=== PATIENT | female | born 1965 | race Caucasian/White ===

== ENCOUNTER 2019-11-07 13:47 | Emergency (ER) | payer BC, SELFPAY ==
[2019-11-07 14:13] VITALS: BP 104/50; PULSE 68; RESP 16; TEMP 36.8; O2SAT 99
--- NOTE | 2019-11-07 14:26 | ED.SKABFB ---
HPI - Skin/Abscess/Foreign Bdy General Chief complaint: Skin/Abscess/Foreign Body Stated complaint: . Time Seen by Provider: 11/07/19 14:26 Source: patient and RN notes reviewed History of Present Illness HPI narrative: Patient is a 54-year-old female that presents the urgent care with complaints of a wound to the left forearm. Patient states that she noticed it Thursday after digging in the mulch and it has became reddened and bruised around the area of injury. Patient denies of any known trauma. Denies any known insect that bit her. Denies of any fever, nausea, vomiting. Patient has been putting Neosporin on the area. No other acute complaints. No acute distress noted. Patient read the plan of care. Related Data Home Medications Medication Instructions Recorded Confirmed bupropion HCl 150 mg PO DAILY 11/07/19 11/07/19 Allergies Allergy/AdvReac Type Severity Reaction Status Date / Time No Known Allergies Allergy Mild Verified 11/07/19 14:12 Review of Systems Review of Systems: Narrative: CONSTITUTIONAL: Denies fever, chills, or sweats. EYES: Denies visual changes, redness, or discharge. ENT: Denies rhinorrhea, congestion, sore throat, or otalgia. CARDIOVASCULAR: Denies chest pain, palpitations, or edema. RESPIRATORY: Denies cough or dyspnea. GASTROINTESTINAL: Denies abdominal pain, nausea, vomiting, or diarrhea. GENITOURINARY: Denies dysuria or hematuria. SKIN: Reports of a possible insect bite to the left forearm MUSCULOSKELETAL: Denies back pain, joint pain, or myalgia. NEUROLOGIC: Denies headache, numbness, or weakness. All other systems reviewed are negative, except as documented in HPI. [facility] Social History Social History Gender identity (if verbalized by the patient): Female Comments At the time of my signature, I reviewed and agree with the nursing past medical, surgical, social, and family history. There is no relevant family history pertinent to the patient complaint. Exam Narrative: Exam Narrative: GENERAL: This is a well-nourished, well-developed patient, in no apparent distress. HEAD: normocephalic, atraumatic. EYES: PERRL. Sclera clear/white. Vision is grossly intact. EARS: External ears normal NOSE: External nose normal with no obvious nasal discharge THROAT: Mucous membranes moist NECK: Neck supple SKIN: 0.5 cm superficial healing scratch to the left forearm with approximately 4 cm surrounding ecchymotic area. No notable hematoma or signs of cellulitis NEURO: awake, alert, and oriented to person, place and time. There were no obvious focal neurologic abnormalities. EXTREMITIES: No clubbing, cyanosis, or edema. Course Vital Signs Vital signs: Vital Signs Temperature 98.2 F 11/07/19 14:13 Pulse Rate 68 11/07/19 14:13 Respiratory Rate 16 11/07/19 14:13 Blood Pressure 104/50 L 11/07/19 14:13 Pulse Oximetry 99 11/07/19 14:13 Temperature 98.2 F 11/07/19 14:13 Pulse Rate 68 11/07/19 14:13 Respiratory Rate 16 11/07/19 14:13 Blood Pressure 104/50 L 11/07/19 14:13 Pulse Oximetry 99 11/07/19 14:13 Reviewed MDM - Skin/Abscess/Foreign Bdy MDM Narrative Medical decision making narrative: Advised the patient to keep the area very clean and free of debris with plain Dial soap and water. If you are going to continue to be outside in that the area is at risk of being soiled?keep the area covered with long sleeves and a bandage. Otherwise, may keep it open to air. May continue to use Neosporin and ice as needed. Be aware of signs and symptoms of infection such as redness, swelling, discharge from the area. No antibiotics necessary at this time. Area should continue to heal well. Follow-up with your PCP within 2 to 5 days or for worsening symptoms or failure to improve. Differential Diagnosis Differential diagnosis: Likely abscess of skin or subcutaneous tissue, urticaria, cellulitis, insect bites and impetigo Critical Care Time Critical Care Time Critical Car
== END 2019-11-07 14:37 | disposition home or self-care (01) ==
PROVIDERS: Emergency Provider Nurse Practitioner Family
DX: S50.812A Abrasion of left forearm, initial encounter (principal); X58.XXXA Exposure to other specified factors, initial encounter
CPT/HCPCS: 99212; G0463

== ENCOUNTER 2020-07-11 20:15 | Emergency (ER) | payer BC, SELFPAY ==
[2020-07-11 20:19] VITALS: BP 117/88; PULSE 71; RESP 12; TEMP 36.6; O2SAT 97
--- NOTE | 2020-07-11 21:45 | ED.GENADULT ---
HPI - General Adult General Chief complaint: Weakness Stated complaint: COVID+ 1[facility] [facility] Time Seen by Provider: 07/11/20 21:05 History of Present Illness HPI narrative: Patient is a 55-year-old female who presents to the ER with complaints of weakness and epigastric pain. Patient recently diagnosed with COVID-19. Saw her PCP today for her symptoms and was prescribed a antibiotic for sinus congestion. Patient reports has been having tingling to her arms, intermittent cramps in her upper abdomen that is gut wrenching. No radiation. Cannot identify any aggravating or alleviating factors. Has persistent nausea but no vomiting. No modification with certain types of food. No constipation or diarrhea. Patient does report intermittent burning urination her last couple days. She is concerned she may be dehydrated. Patient also reports some tingling of her skin. Related Data Home Medications Medication Instructions Recorded Confirmed bupropion HCl 150 mg PO DAILY 11/07/19 11/07/19 Allergies Allergy/AdvReac Type Severity Reaction Status Date / Time No Known Allergies Allergy Mild Verified 07/11/20 20:24 Review of Systems Review of Systems: All systems reviewed & are unremarkable except as noted in HPI and below Constitutional: Constitutional: Denies chills, Denies fever(s) and Reports weakness ENT: Reports nasal congestion and Denies sore throat Cardiovascular: Cardiovascular: Denies chest pain and Denies radiating jaw, neck or arm pain Respiratory: Respiratory: Denies cough and Denies dyspnea Gastrointestinal: Gastrointestinal: Reports abdominal pain, Denies constipation, Denies diarrhea, Reports nausea and Denies vomiting Genitourinary: Genitourinary: Denies nocturia and Reports dysuria Musculoskeletal: Musculoskeletal: Denies back pain and Reports muscle cramps PMFSH Past Medical History Medical History (Updated 07/11/20 @ 22:50 by Ovidio Osorio MD) Healthy female adult Surgical History Surgical History (Updated 07/11/20 @ 22:19 by Ovidio Osorio MD) History of breast biopsy Social History Social History (Updated 07/11/20 @ 22:19 by Ovidio Osorio MD) Smoking status: Never smoker Gender identity (if verbalized by the patient): Female Exam Narrative: Exam Narrative: GENERAL: Well-appearing, well-nourished, and in no acute distress. HEAD: Normocephalic, atraumatic. EYES: PERRL and EOMI. CHEST: Clear to auscultation. No respiratory distress. HEART: Regular rate and rhythm. Normal peripheral pulses. ABDOMEN: Soft, mild epigastric tenderness without guarding, nondistended. EXTREMITIES: Normal range of motion. No edema. SKIN: Warm, dry, no rash. NEURO: Alert and oriented x3. PSYCH: Normal mood and affect. Course Course Emergency Course: Symptoms improved with morphine and Zofran. Patient hydrated. No tingling at this time. Discussed results. Recommend outpatient ultrasound of gallbladder and low-fat diet. Vital Signs Vital signs: Vital Signs Temperature 97.8 F 07/11/20 20:19 Pulse Rate 71 07/11/20 20:19 Respiratory Rate 12 07/11/20 20:19 Blood Pressure 117/88 07/11/20 20:19 Pulse Oximetry 97 07/11/20 20:19 Temperature 97.8 F 07/11/20 20:19 Pulse Rate 71 07/11/20 20:19 Respiratory Rate 12 07/11/20 20:19 Blood Pressure 117/88 07/11/20 20:19 Pulse Oximetry 97 07/11/20 20:19 Medical Decision Making Vital Signs Vital Signs: Vital Signs Temperature 97.8 F 07/11/20 20:19 Pulse Rate 71 07/11/20 20:19 Respiratory Rate 12 07/11/20 20:19 Blood Pressure 117/88 07/11/20 20:19 Pulse Oximetry 97 07/11/20 20:19 Temperature 97.8 F 07/11/20 20:19 Pulse Rate 71 07/11/20 20:19 Respiratory Rate 12 07/11/20 20:19 Blood Pressure 117/88 07/11/20 20:19 Pulse Oximetry 97 07/11/20 20:19 Lab Data Result diagrams: 07/11/20 21:40 07/11/20 21:40 Labs: Lab Results 01
[2020-07-11 21:48] LABS: Basophils Percent Auto 0.3 % (0.2-1.2); Eosinophils Percent Auto 1.1 % (0-4.4); Hematocrit 42.2 % (37.0-47.0); Hemoglobin 14.1 g/dL (12.0-15.0); Lymphocytes Absolute Auto 1.33 K/mm3 (0.9-3.2); Lymphocytes Percent Auto 36.5 % (18.3-44.2); Mean Corpuscular HGB Conc 33.4 g/dl (32-36); Mean Corpuscular Hemoglobin 29.6 pg (26-34); Mean Corpuscular Volume 88.5 fl (80-100); Mean Platelet Volume 10.3 fl (7.4-10.4); Monocytes Absolute Auto 0.4 K/mm3 (0.1-0.6); Monocytes Percent Auto 9.6 % (2.6-8.5); Neutrophils Absolute Auto 1.9 K/mm3 (1.3-6.7); Neutrophils Percent Auto 52.5 % (45.5-73.1); Platelet Count Result 242 k/mm3 (150-375); Red Blood Count 4.77 M/mm3 (4.2-5.4); Red Cell Distribution Width 12.2 % (11.5-14.5); White Blood Count 3.6 K/mm3 (4.5-10.0)
[2020-07-11 21:50] LABS: Add Urine Microscopic? NO; Appearance Urine Clear (Clear); Bilirubin Urine Negative (Negative); Blood Urine Negative (Negative); Color Urine Straw (Yellow); Glucose Urine UA Negative (Negative); Ketones Urine Negative (Negative); Leukocyte Esterase Ur Negative LEU/UL (Negative); Nitrate Urine Negative (Negative); Protein Urine Negative (Negative); Specific Grav Ur 1.012 (1.001-1.035); Urobilinogen Urine Negative mg/dL (<2.0)
[2020-07-11] MEDS: SODIUM CHLORIDE 0.9% IV 1,000 ML 999 ML IV CONT (21:54)
[2020-07-11] MEDS: MORPHINE SULFATE (*CRX) 4 MG/ML INJ IV PUSH (21:54)
[2020-07-11] MEDS: ONDANSETRON INJ 4 MG/2 ML VIAL IV PUSH (21:55)
[2020-07-11 21:58] LABS: Alanine Aminotransferase 29 U/L (4-35); Albumin Level 4.3 g/dL (3.5-5.1); Alkaline Phosphatase 81 U/L (38-126); Anion Gap 7 mmol/L (8-16); Aspartate Amino Transferase 33 U/L (14-36); Bilirubin,Total 0.3 mg/dL (0.2-1.3); Blood Urea Nitrogen 11 mg/dL (7-17); Calcium 9.6 mg/dL (8.4-10.2); Carbon Dioxide 32 mmol/L (22-30); Chloride 103 mmol/L (98-107); Estimated CRCL calculation 85 ml/min; Estimated Glomerular Filt Rate > 60; Glucose 108 mg/dL (65-105); Lipase 115 U/L (23-300); Potassium 4.4 mmol/L (3.4-5.0); Sodium 142 mmol/L (137-145)
[2020-07-11 23:15] VITALS: BP 103/70; PULSE 65; RESP 16; O2SAT 96
== END 2020-07-11 23:18 | disposition home or self-care (01) ==
PROVIDERS: Emergency Provider Emergency Medicine
DX: E86.0 Dehydration (principal); R10.13 Epigastric pain
CPT/HCPCS: 36415; 80053; 81003; 83690; 85025; 96361; 96374; 96375; 99284; J2270; J2405; J7030